=== PATIENT | male | born 1950 | race African-American/Black ===

== ENCOUNTER 2019-11-15 20:49 | Inpatient (IN) ==
[2019-11-15] MEDS ORDERED: 0.9 % Sodium Chloride 500 ML IVC ONE (21:13)
[2019-11-15] MEDS ORDERED: 0.9 % Sodium Chloride 1,000 ML IVC ONE (21:40)
[2019-11-15 21:45] LABS: Basophils % 0.4 %; Eosinophils % 0.4 %; Hematocrit 43.5 % (37.5-50.1); Hemoglobin 14.6 g/dL (12.9-16.9); Immature Granulocytes % 0.2 % (0-4); Lymphocytes # 0.8 K/mcL (0.6-4.6); Lymphocytes % 14.3 %; Mean Corpuscular HGB Conc 33.6 g/dL (31.6-35.5); Mean Corpuscular Volume 92.4 fL (83.0-100.0); Mean Platelet Volume 10.2 fL (9.4-12.4); Monocytes # 0.7 K/mcL (0.0-1.3); Monocytes % 11.5 %; Neutrophils # 4.2 K/mcL (1.6-8.9); Platelet Count 165 K/mcL (140-400); Red Blood Count 4.71 M/mcL (4.19-5.50); Red Cell Distribution Width 13.4 % (11.5-14.5); Segmented Neutrophils % 73.2 %; White Blood Count 5.7 K/mcL (4.3-11.1)
[2019-11-15 21:51] LABS: INR 1.1; Prothrombin Time 12.1 Seconds (9.4-12.1)
[2019-11-15 21:54] LABS: Activated Partial Thrombo Time 32.3 Seconds (26.0-36.0)
[2019-11-15 22:09] LABS: BUN/Creatinine Ratio 23 (6-26); Blood Urea Nitrogen 22 mg/dL (8-23); Calcium 9.5 mg/dL (8.6-10.3); Carbon Dioxide 19 mEq/L (23-29); Chloride 102 mEq/L (98-107); Creatine Kinase 484 Units/L (30-223); Ethanol < 10 mg/dL (Less than 10); Glucose 99 mg/dL (70-105); Osmolality,Calculated 279 (280-300); Potassium 3.5 mEq/L (3.5-5.1); Sodium 133 mEq/L (136-145); eGFR For African Americans > 60 (> 60); eGFR For Non-African Americans > 60 (> 60)
[2019-11-15 22:10] LABS: Troponin I < 0.03 ng/mL (< 0.04)
[2019-11-15 22:38] LABS: Bacteria,Urine Few per hpf (None-Few); Bilirubin,Urine Small (Negative); Blood,Urine Negative (Negative); Clarity,Urine Turbid (Clear); Color,Urine Dark-Orange (Yellow); Glucose,Urine (UA) Normal (Normal); Hyaline Casts,Urine Few per lpf (None Seen); Ketones,Urine Trace mg/dL (Negative); Leukocyte Esterase,Urine Negative (Negative); Mucus,Urine Many per lpf (None-Few); Nitrite,Urine Negative (Negative); PH,Urine 5.5 pH Units (5.0-8.0); Protein,Urine 100 mg/dL (Neg-Trace); Renal Epithelial Cells,Urine Few per hpf (None-Few); Specific Gravity,Urine > 1.030 (1.010-1.025); Squamous Epithelial Cell,Urine Few per hpf (None-Few); Transitional Epi Cells,Urine Few per hpf (None-Few); Urobilinogen,Urine >=8.0 mg/dL (Normal)
[2019-11-15] MEDS ORDERED: cefTRIAXone 1,000 MG in 0.9 % Sodium Chloride Mini Bag 100 ML IVPB ONE (23:52)
[2019-11-16] MEDS ORDERED: *HR* Promethazine 25 MG/ML VIAL IVP PRN (00:37)
[2019-11-16] MEDS ORDERED: Naloxone 0.4 MG/ML INJ IVP PRN (00:37)
[2019-11-16] MEDS ORDERED: Acetaminophen 325 MG TABLET PO PRN (00:37)
[2019-11-16] MEDS: 0.9 % Sodium Chloride 1,000 ML IVC SCH ×2 (01:51→12:22)
[2019-11-16 02:02] LABS: Bilirubin,Urine Small (Negative); Blood,Urine Negative (Negative); Clarity,Urine Clear (Clear); Color,Urine Dark-Orange (Yellow); Glucose,Urine (UA) Normal (Normal); Ketones,Urine Trace mg/dL (Negative); Leukocyte Esterase,Urine Negative (Negative); Nitrite,Urine Negative (Negative); PH,Urine 5.5 pH Units (5.0-8.0); Protein,Urine 50 mg/dL (Neg-Trace); Specific Gravity,Urine > 1.030 (1.010-1.025); Urobilinogen,Urine >=8.0 mg/dL (Normal)
[2019-11-16 02:03] LABS: Amorphous Sediment,Urine Few per hpf (None-Few); Hyaline Casts,Urine Few per lpf (None Seen); Mucus,Urine Few per lpf (None-Few); RBC,Urine 0-3 per hpf (0-3); WBC,Urine 0-3 per hpf (0-3)
[2019-11-16] MEDS ORDERED: 0.9 % Sodium Chloride 1,000 ML IVC ONE (02:33)
[2019-11-16] MEDS ORDERED: *HR* LORazepam 2 MG/ML VIAL IVP PRN (02:46)
[2019-11-16 05:23] LABS: INR 1.1; Prothrombin Time 12.8 Seconds (9.4-12.1)
[2019-11-16 05:27] LABS: Basophils % 0.2 %; Immature Granulocytes % 0.2 % (0-4); Mean Corpuscular Hemoglobin 31.5 pg (28.0-33.3)
[2019-11-16 05:29] LABS: Hematocrit 37.1 % (37.5-50.1); Hemoglobin 12.6 g/dL (12.9-16.9); Lymphocytes % 10.7 %; Mean Corpuscular Volume 92.8 fL (83.0-100.0); Mean Platelet Volume 10.6 fL (9.4-12.4); Monocytes # 0.7 K/mcL (0.0-1.3); Monocytes % 14.3 %; Neutrophils # 3.8 K/mcL (1.6-8.9); Platelet Count 132 K/mcL (140-400); Red Cell Distribution Width 13.4 % (11.5-14.5); Segmented Neutrophils % 74.6 %; White Blood Count 5.1 K/mcL (4.3-11.1)
[2019-11-16 05:35] LABS: Lymphocytes # 0.6 K/mcL (0.6-4.6)
[2019-11-16 05:39] LABS: Alanine Aminotransferase 6 Units/L (7-52); Alkaline Phosphatase 84 Units/L (34-104); Aspartate Amino Transferase 18 Units/L (13-39); BUN/Creatinine Ratio 28 (6-26); Bilirubin,Total 1.1 mg/dL (0.3-1.0); Blood Urea Nitrogen 18 mg/dL (8-23); Calcium 8.3 mg/dL (8.6-10.3); Carbon Dioxide 18 mEq/L (23-29); Chloride 105 mEq/L (98-107); Chol/HDL Ratio 2.1 (0-4.9); Cholesterol 102 mg/dL (< 200); Creatine Kinase 351 Units/L (30-223); Globulin 2.9 g/dL (2.4-3.5); Glucose 100 mg/dL (70-105); HDL Cholesterol 49 mg/dL (40-59); LDL Cholesterol,Calculated 44 mg/dL (< 100); Lipase 12 Units/L (11-82); Osmolality,Calculated 278 (280-300); Phosphorous 2.6 mg/dL (2.7-4.5); Potassium 3.4 mEq/L (3.5-5.1); Sodium 133 mEq/L (136-145); Total Protein 5.9 g/dL (6.4-8.9); Triglycerides 45 mg/dL (< 150); eGFR For African Americans > 60 (> 60); eGFR For Non-African Americans > 60 (> 60)
[2019-11-16 05:49] LABS: Thyroid Stimulating Hormone 16.679 mcIU/mL (0.340-5.600)
[2019-11-16 05:58] LABS: Folate 9.9 ng/mL (3.0-16.0)
[2019-11-16 07:12] LABS: Estimated Average Glucose 100 mg/dl
[2019-11-16 07:47] LABS: Triiodothyronine (T3) Free 1.38 pg/mL (2.50-3.90)
[2019-11-16] MEDS: Nicotine 21 MG PATCH.TD24 TD SCH (08:17)
[2019-11-16] MEDS: Loratadine 10 MG TABLET PO SCH (08:17)
[2019-11-16] MEDS ORDERED: Isovue-370 500 ML BOTTLE IVP ONE (13:30)
[2019-11-16] MEDS: cefTRIAXone 1,000 MG in Water for inj. (sterile) 10 ML IVP SCH (17:54)
[2019-11-16] MEDS: Thiamine (B-1) 100 MG, Folic Acid 1 MG, MVI, adult with vitamin K 10 ML in 0.9 % Sodi... IVPB SCH (17:57)
[2019-11-17 05:15] LABS: Eosinophils % 0.4 %; Platelet Count 127 K/mcL (140-400)
[2019-11-17 05:17] LABS: Basophils % 0.6 %; Hematocrit 36.4 % (37.5-50.1); Hemoglobin 12.2 g/dL (12.9-16.9); Immature Granulocytes % 0.4 % (0-4); Lymphocytes # 0.8 K/mcL (0.6-4.6); Lymphocytes % 11.3 %; Mean Corpuscular HGB Conc 33.5 g/dL (31.6-35.5); Mean Corpuscular Hemoglobin 30.8 pg (28.0-33.3); Mean Corpuscular Volume 91.9 fL (83.0-100.0); Mean Platelet Volume 10.7 fL (9.4-12.4); Monocytes % 14.5 %; Red Blood Count 3.96 M/mcL (4.19-5.50); Red Cell Distribution Width 13.6 % (11.5-14.5); Segmented Neutrophils % 72.8 %; White Blood Count 7.2 K/mcL (4.3-11.1)
[2019-11-17 05:31] LABS: BUN/Creatinine Ratio 24 (6-26); Blood Urea Nitrogen 12 mg/dL (8-23); Calcium 7.8 mg/dL (8.6-10.3); Carbon Dioxide 18 mEq/L (23-29); Chloride 104 mEq/L (98-107); Glucose 92 mg/dL (70-105); Osmolality,Calculated 267 (280-300); Potassium 3.2 mEq/L (3.5-5.1); Sodium 129 mEq/L (136-145); eGFR For African Americans > 60 (> 60); eGFR For Non-African Americans > 60 (> 60)
[2019-11-17 05:40] LABS: Neutrophils # 5.2 K/mcL (1.6-8.9); Platelet Estimate Slight Decrease (Normal)
[2019-11-17] MEDS: Nicotine 21 MG PATCH.TD24 TD SCH (08:49)
[2019-11-17] MEDS: Loratadine 10 MG TABLET PO SCH (08:49)
[2019-11-17] MEDS ORDERED: Potassium Phosphate 44 MEQ in 0.9 % Sodium Chloride 250 ML IVPB ONE (09:51)
[2019-11-17] MEDS: 0.9 % Sodium Chloride 1,000 ML IVC SCH (13:00)
[2019-11-17] MEDS ORDERED: Lidocaine -MPF 2% 2 ML VIAL ONE (13:27)
[2019-11-17] MEDS ORDERED: *HR* Propofol 200 MG/20 ML VIAL IVP ONE (13:27)
[2019-11-17] MEDS ORDERED: *HR* PHENYLEPHRINE 1,000 MCG/10 ML SYRINGE IVP ONE (13:54)
[2019-11-17] MEDS: Thiamine (B-1) 100 MG, Folic Acid 1 MG, MVI, adult with vitamin K 10 ML in 0.9 % Sodi... IVPB SCH (17:33)
[2019-11-17] MEDS: cefTRIAXone 1,000 MG in Water for inj. (sterile) 10 ML IVP SCH (17:34)
[2019-11-18] MEDS: 0.9 % Sodium Chloride 1,000 ML IVC SCH ×3 (00:10→18:10)
[2019-11-18 05:35] LABS: Hematocrit 34.3 % (37.5-50.1); Hemoglobin 11.4 g/dL (12.9-16.9); Mean Corpuscular HGB Conc 33.2 g/dL (31.6-35.5); Mean Corpuscular Hemoglobin 30.9 pg (28.0-33.3); Mean Platelet Volume 10.6 fL (9.4-12.4); Platelet Count 135 K/mcL (140-400); Red Blood Count 3.69 M/mcL (4.19-5.50); Red Cell Distribution Width 13.9 % (11.5-14.5); White Blood Count 6.6 K/mcL (4.3-11.1)
[2019-11-18 05:52] LABS: BUN/Creatinine Ratio 21 (6-26); Blood Urea Nitrogen 11 mg/dL (8-23); Calcium 7.5 mg/dL (8.6-10.3); Carbon Dioxide 19 mEq/L (23-29); Chloride 106 mEq/L (98-107); Glucose 84 mg/dL (70-105); Osmolality,Calculated 273 (280-300); Sodium 132 mEq/L (136-145); eGFR For African Americans > 60 (> 60); eGFR For Non-African Americans > 60 (> 60)
[2019-11-18 06:00] LABS: Burr Cells 1+ (Not Present); Lymphocytes # 0.9 K/mcL (0.6-4.6); Monocytes # 0.7 K/mcL (0.0-1.3); Poikilocytosis 1+ (Not Present)
[2019-11-18 06:01] LABS: Platelet Estimate Slight Decrease (Normal)
[2019-11-18] MEDS: Loratadine 10 MG TABLET PO SCH (09:12)
[2019-11-18] MEDS: Thiamine (B-1) 100 MG TABLET PO SCH (09:12)
[2019-11-18] MEDS: Nicotine 21 MG PATCH.TD24 TD SCH (09:13)
[2019-11-18] MEDS: Budesonide/Formoterol 160/4.5 1 PUFF INH IH SCH ×2 (09:34→21:48)
[2019-11-18] MEDS: Tiotropium 18 MCG inhalation IH SCH (09:34)
[2019-11-18] MEDS ORDERED: Milk and Molasses Enema 200 ML RC ONE (10:52)
[2019-11-18] MEDS: Sennosides/Docusate Sodium TABLET PO SCH ×2 (12:39→20:42)
[2019-11-18] MEDS: Pantoprazole 40 MG VIAL IVP SCH (17:57)
[2019-11-18] MEDS: cefTRIAXone 1,000 MG in Water for inj. (sterile) 10 ML IVP SCH (17:58)
[2019-11-18] MEDS: Thiamine (B-1) 100 MG, Folic Acid 1 MG, MVI, adult with vitamin K 10 ML in 0.9 % Sodi... IVPB SCH (17:59)
[2019-11-18] MEDS ORDERED: 0.9 % Sodium Chloride 1,000 ML IVC SCH (18:15)
[2019-11-19] MEDS: Pantoprazole 40 MG VIAL IVP SCH ×2 (05:51→14:43)
[2019-11-19] MEDS: Budesonide/Formoterol 160/4.5 1 PUFF INH IH SCH ×2 (08:00→19:46)
[2019-11-19] MEDS: Tiotropium 18 MCG inhalation IH SCH (08:00)
[2019-11-19] MEDS: Nicotine 21 MG PATCH.TD24 TD SCH (10:05)
[2019-11-19] MEDS: Loratadine 10 MG TABLET PO SCH (10:06)
[2019-11-19] MEDS: Sennosides/Docusate Sodium TABLET PO SCH ×2 (10:06→21:02)
[2019-11-19] MEDS: Thiamine (B-1) 100 MG TABLET PO SCH (10:06)
[2019-11-19] MEDS: cefTRIAXone 1,000 MG in Water for inj. (sterile) 10 ML IVP SCH (14:43)
[2019-11-19 15:17] LABS: Hematocrit 33.7 % (37.5-50.1); Hemoglobin 11.3 g/dL (12.9-16.9); Mean Corpuscular HGB Conc 33.5 g/dL (31.6-35.5); Mean Corpuscular Hemoglobin 30.8 pg (28.0-33.3); Mean Corpuscular Volume 91.8 fL (83.0-100.0); Mean Platelet Volume 10.6 fL (9.4-12.4); Platelet Count 133 K/mcL (140-400); Red Blood Count 3.67 M/mcL (4.19-5.50); Red Cell Distribution Width 13.7 % (11.5-14.5); White Blood Count 4.9 K/mcL (4.3-11.1)
[2019-11-19 15:19] LABS: VBG Ionized Calcium 1.13 mmol/L (1.15-1.35)
[2019-11-19 15:35] LABS: Albumin 2.2 g/dL (3.5-5.7); Bilirubin,Direct 0.2 mg/dL (0.0-0.2); Bilirubin,Indirect 0.5 mg/dL (0.0-1.0); Bilirubin,Total 0.7 mg/dL (0.3-1.0); Globulin 2.3 g/dL (2.4-3.5); Total Protein 4.5 g/dL (6.4-8.9)
[2019-11-19 15:38] LABS: BUN/Creatinine Ratio 10 (6-26); Blood Urea Nitrogen 5 mg/dL (8-23); Calcium 7.3 mg/dL (8.6-10.3); Carbon Dioxide 21 mEq/L (23-29); Chloride 104 mEq/L (98-107); Glucose 122 mg/dL (70-105); Magnesium 1.9 mg/dL (1.6-2.6); Osmolality,Calculated 271 (280-300); Phosphorous 1.5 mg/dL (2.7-4.5); Sodium 131 mEq/L (136-145); eGFR For African Americans > 60 (> 60); eGFR For Non-African Americans > 60 (> 60)
[2019-11-20] MEDS: Pantoprazole 40 MG VIAL IVP SCH ×2 (05:49→18:15)
[2019-11-20] MEDS: Tiotropium 18 MCG inhalation IH SCH (08:01)
[2019-11-20] MEDS: Budesonide/Formoterol 160/4.5 1 PUFF INH IH SCH ×2 (08:01→20:04)
[2019-11-20] MEDS: Loratadine 10 MG TABLET PO SCH (08:17)
[2019-11-20] MEDS: Sennosides/Docusate Sodium TABLET PO SCH ×2 (08:17→20:20)
[2019-11-20] MEDS: Thiamine (B-1) 100 MG TABLET PO SCH (08:17)
[2019-11-20] MEDS: Nicotine 21 MG PATCH.TD24 TD SCH (08:18)
[2019-11-20] MEDS ORDERED: Milk and Molasses Enema 200 ML RC ONE (10:53)
[2019-11-20] MEDS: Sucralfate 1 GM TABLET PO SCH ×3 (11:48→20:20)
[2019-11-20] MEDS: cefTRIAXone 1,000 MG in Water for inj. (sterile) 10 ML IVP SCH (17:26)
[2019-11-21] MEDS: Pantoprazole 40 MG VIAL IVP SCH (05:10)
[2019-11-21 05:38] LABS: Hematocrit 34.7 % (37.5-50.1); Hemoglobin 11.8 g/dL (12.9-16.9); Mean Corpuscular Hemoglobin 31.1 pg (28.0-33.3); Mean Corpuscular Volume 91.6 fL (83.0-100.0); Mean Platelet Volume 9.8 fL (9.4-12.4); Platelet Count 176 K/mcL (140-400); Red Blood Count 3.79 M/mcL (4.19-5.50); Red Cell Distribution Width 13.6 % (11.5-14.5)
[2019-11-21 05:41] LABS: BUN/Creatinine Ratio 14 (6-26); Blood Urea Nitrogen 6 mg/dL (8-23); Calcium 7.5 mg/dL (8.6-10.3); Carbon Dioxide 22 mEq/L (23-29); Chloride 105 mEq/L (98-107); Glucose 90 mg/dL (70-105); Osmolality,Calculated 275 (280-300); Potassium 3.3 mEq/L (3.5-5.1); Sodium 134 mEq/L (136-145); eGFR For African Americans > 60 (> 60); eGFR For Non-African Americans > 60 (> 60)
[2019-11-21 07:09] LABS: Neutrophils # 4.4 K/mcL (1.6-8.9); Platelet Estimate Normal (Normal)
[2019-11-21] MEDS: Budesonide/Formoterol 160/4.5 1 PUFF INH IH SCH ×2 (07:54→22:16)
[2019-11-21] MEDS: Tiotropium 18 MCG inhalation IH SCH (07:55)
[2019-11-21] MEDS: Nicotine 21 MG PATCH.TD24 TD SCH (09:19)
[2019-11-21] MEDS: Loratadine 10 MG TABLET PO SCH (09:20)
[2019-11-21] MEDS: Sennosides/Docusate Sodium TABLET PO SCH ×2 (09:20→21:44)
[2019-11-21] MEDS: Sucralfate 1 GM TABLET PO SCH ×4 (09:20→21:44)
[2019-11-21] MEDS: Thiamine (B-1) 100 MG TABLET PO SCH (09:20)
[2019-11-22 03:30] LABS: Hematocrit 30.9 % (37.5-50.1); Hemoglobin 10.4 g/dL (12.9-16.9); Mean Corpuscular HGB Conc 33.7 g/dL (31.6-35.5); Mean Corpuscular Hemoglobin 30.8 pg (28.0-33.3); Mean Corpuscular Volume 91.4 fL (83.0-100.0); Mean Platelet Volume 9.9 fL (9.4-12.4); Platelet Count 184 K/mcL (140-400); Red Blood Count 3.38 M/mcL (4.19-5.50); Red Cell Distribution Width 13.7 % (11.5-14.5); White Blood Count 6.2 K/mcL (4.3-11.1)
[2019-11-22 03:46] LABS: BUN/Creatinine Ratio 17 (6-26); Blood Urea Nitrogen 8 mg/dL (8-23); Calcium 7.3 mg/dL (8.6-10.3); Carbon Dioxide 22 mEq/L (23-29); Chloride 103 mEq/L (98-107); Glucose 97 mg/dL (70-105); Magnesium 1.9 mg/dL (1.6-2.6); Osmolality,Calculated 270 (280-300); Potassium 3.3 mEq/L (3.5-5.1); Sodium 131 mEq/L (136-145); eGFR For African Americans > 60 (> 60); eGFR For Non-African Americans > 60 (> 60)
[2019-11-22] MEDS: Sucralfate 1 GM TABLET PO SCH ×4 (08:16→23:23)
[2019-11-22] MEDS: Nicotine 21 MG PATCH.TD24 TD SCH (08:16)
[2019-11-22] MEDS: Thiamine (B-1) 100 MG TABLET PO SCH (08:16)
[2019-11-22] MEDS: Loratadine 10 MG TABLET PO SCH (08:16)
[2019-11-22] MEDS: Sennosides/Docusate Sodium TABLET PO SCH ×2 (08:16→20:23)
[2019-11-22] MEDS: Tiotropium 18 MCG inhalation IH SCH (09:47)
[2019-11-22] MEDS: Budesonide/Formoterol 160/4.5 1 PUFF INH IH SCH ×2 (09:48→21:47)
[2019-11-22] MEDS ORDERED: Bisacodyl 10 MG RECTAL SUPPOSITORY RC SCH (21:00)
[2019-11-23 06:36] LABS: Basophils # 0.1 K/mcL (0.0-0.2); Basophils % 1.1 %; Eosinophils # 0.1 K/mcL (0.0-0.6); Eosinophils % 1.3 %; Hematocrit 32.3 % (37.5-50.1); Hemoglobin 10.9 g/dL (12.9-16.9); Immature Granulocytes % 0.9 % (0-4); Lymphocytes # 1.5 K/mcL (0.6-4.6); Lymphocytes % 26.7 %; Mean Corpuscular HGB Conc 33.7 g/dL (31.6-35.5); Mean Corpuscular Volume 91.8 fL (83.0-100.0); Mean Platelet Volume 9.7 fL (9.4-12.4); Monocytes # 0.6 K/mcL (0.0-1.3); Monocytes % 10.2 %; Neutrophils # 3.4 K/mcL (1.6-8.9); Platelet Count 207 K/mcL (140-400); Red Blood Count 3.52 M/mcL (4.19-5.50); Red Cell Distribution Width 13.9 % (11.5-14.5); Segmented Neutrophils % 59.8 %; White Blood Count 5.6 K/mcL (4.3-11.1)
[2019-11-23 06:53] LABS: BUN/Creatinine Ratio 22 (6-26); Blood Urea Nitrogen 11 mg/dL (8-23); Calcium 7.7 mg/dL (8.6-10.3); Carbon Dioxide 24 mEq/L (23-29); Chloride 104 mEq/L (98-107); Glucose 96 mg/dL (70-105); Osmolality,Calculated 275 (280-300); Potassium 3.6 mEq/L (3.5-5.1); Sodium 133 mEq/L (136-145); eGFR For African Americans > 60 (> 60); eGFR For Non-African Americans > 60 (> 60)
[2019-11-23 07:03] LABS: Platelet Estimate Normal (Normal)
[2019-11-23] MEDS: Budesonide/Formoterol 160/4.5 1 PUFF INH IH SCH ×2 (07:51→20:18)
[2019-11-23] MEDS: Sucralfate 1 GM TABLET PO SCH ×4 (08:43→20:31)
[2019-11-23] MEDS: Nicotine 21 MG PATCH.TD24 TD SCH (08:43)
[2019-11-23] MEDS: Sennosides/Docusate Sodium TABLET PO SCH ×2 (08:43→20:31)
[2019-11-23] MEDS: Thiamine (B-1) 100 MG TABLET PO SCH (08:43)
[2019-11-23] MEDS: Loratadine 10 MG TABLET PO SCH (08:44)
[2019-11-23] MEDS: Tiotropium 18 MCG inhalation IH SCH (11:34)
[2019-11-24 01:36] LABS: Basophils # 0.1 K/mcL (0.0-0.2); Basophils % 0.9 %; Eosinophils # 0.1 K/mcL (0.0-0.6); Eosinophils % 1.3 %; Hematocrit 31.9 % (37.5-50.1); Hemoglobin 10.5 g/dL (12.9-16.9); Immature Granulocytes % 0.4 % (0-4); Lymphocytes % 29.4 %; Mean Corpuscular HGB Conc 32.9 g/dL (31.6-35.5); Mean Corpuscular Hemoglobin 30.5 pg (28.0-33.3); Mean Corpuscular Volume 92.7 fL (83.0-100.0); Mean Platelet Volume 9.6 fL (9.4-12.4); Monocytes # 0.6 K/mcL (0.0-1.3); Monocytes % 10.9 %; Neutrophils # 3.2 K/mcL (1.6-8.9); Platelet Count 226 K/mcL (140-400); Red Blood Count 3.44 M/mcL (4.19-5.50); Red Cell Distribution Width 14.1 % (11.5-14.5); Segmented Neutrophils % 57.1 %; White Blood Count 5.6 K/mcL (4.3-11.1)
[2019-11-24 01:40] LABS: Lymphocytes # 1.7 K/mcL (0.6-4.6)
[2019-11-24 01:54] LABS: BUN/Creatinine Ratio 22 (6-26); Blood Urea Nitrogen 11 mg/dL (8-23); Calcium 7.5 mg/dL (8.6-10.3); Carbon Dioxide 24 mEq/L (23-29); Chloride 104 mEq/L (98-107); Glucose 102 mg/dL (70-105); Osmolality,Calculated 276 (280-300); Potassium 3.9 mEq/L (3.5-5.1); Sodium 133 mEq/L (136-145); eGFR For African Americans > 60 (> 60); eGFR For Non-African Americans > 60 (> 60)
[2019-11-24 01:59] LABS: Platelet Estimate Normal (Normal); Reactive Lymphocytes Present (Not Present)
[2019-11-24] MEDS ORDERED: polyethylene glycoL 3350 17 GM POWD.PACK PO SCH (09:00)
[2019-11-24] MEDS: Loratadine 10 MG TABLET PO SCH (09:44)
[2019-11-24] MEDS: Thiamine (B-1) 100 MG TABLET PO SCH (09:44)
[2019-11-24] MEDS: Sennosides/Docusate Sodium TABLET PO SCH (09:44)
[2019-11-24] MEDS: Nicotine 21 MG PATCH.TD24 TD SCH (09:44)
[2019-11-24] MEDS: Sucralfate 1 GM TABLET PO SCH ×3 (09:46→16:23)
[2019-11-24] MEDS: Tiotropium 18 MCG inhalation IH SCH (10:14)
[2019-11-24] MEDS: Budesonide/Formoterol 160/4.5 1 PUFF INH IH SCH (10:14)
[2019-11-24 18:35] VITALS: BP 106/64
== END 2019-11-24 19:45 | DRG 380 ==
LOC: 2ANU 20:49 → EMEROOARM 20:49 → SUATTDRO 23:54 → 2ANU 11-16 00:32
PROVIDERS: ADMIT Student in an Organized Health Care Education/Training Program; ATTEND Internal Medicine
PROC: ENDOEBX (2019-11-17 11:00)